=== PATIENT | female | born 1995 | race Caucasian/White ===

== ENCOUNTER 2020-04-25 10:03 | Inpatient (IN) | payer OTHER ==
[~2020-04-25] VITALS: Ht 157.4 cm; Wt 71.3 kg
[2020-04-25 11:13] VITALS: BP 150/92
[2020-04-25] MEDS ORDERED: REMERON30 M1 PO (11:35)
[2020-04-25 13:08] LABS: URINE AMPHETAMINES < 1000 (1000ng/ml); URINE BARBITURATES > 200 (200ng/ml); URINE BENZODIAZEPINES < 200 (200ng/ml); URINE CANNABINOIDS (THC) < 50 (50ng/ml); URINE COCAINE < 300 (300ng/ml); URINE METHADONE < 300 (300ng/ml); URINE OPIATES > 300 (300ng/ml)
[2020-04-25 13:09] LABS: URINE PHENCYCLIDINE < 25 (25ng/ml)
[2020-04-25 13:26] LABS: BACTERIA 3+; BILIRUBIN NEGATIVE (NEGATIVE); BLOOD NEGATIVE (NEGATIVE); CLARITY CLOUDY (CLEAR); COLOR YELLOW (YELLOW); EPITHELIAL CELLS 21-30; GLUCOSE NEGATIVE (NEGATIVE); KETONE NEGATIVE (NEGATIVE); LEUKO ESTERASE 1+ (NEGATIVE); MUCOUS 2+; NITRITE NEGATIVE (NEGATIVE); UROBILINOGEN 0.2 E.U./dl (0.2-1.0)
[2020-04-25 16:00] VITALS: BP 138/95
[2020-04-25 20:00] VITALS: BP 128/91
[2020-04-26 08:00] VITALS: BP 126/88
[2020-04-26 12:00] VITALS: BP 100/78
[2020-04-26 16:00] VITALS: BP 133/90
[2020-04-26 20:00] VITALS: BP 120/78
[2020-04-27] VITALS: BP 118/82
[2020-04-27 08:00] VITALS: BP 112/74
[2020-04-27 12:00] VITALS: BP 110/70
[2020-04-27] MEDS ORDERED: MOTRIN 600 MG E4 TAB PO (13:50)
[2020-04-27] MEDS ORDERED: METHOCARBAMOL750 M1 PO (13:50)
[2020-04-27] MEDS ORDERED: DICYCLOMINE HCL20 MG PO (13:50)
[2020-04-27] MEDS ORDERED: ZOFRAN 4 MG ED2 TAB PO (13:50)
[2020-04-27] MEDS ORDERED: THERA TABLET400 MCG PO (13:50)
[2020-04-27] MEDS ORDERED: ATARAX,VISTARIL50 MG PO (13:50)
[2020-04-27 16:00] VITALS: BP 116/74
[2020-04-27 20:00] VITALS: BP 113/73
[2020-04-28] VITALS: BP 101/83
== END 2020-04-28 08:17 | disposition home or self-care (01) | DRG 773 ==
LOC: 5E 10:03
PROVIDERS: Registered Nurse; ADMIT Internal Medicine
DX: F11.23 Opioid dependence with withdrawal (principal); F32.9 Major depressive disorder, single episode, unspecified; F17.210 Nicotine dependence, cigarettes, uncomplicated; R03.0 Elevated blood-pressure reading, without diagnosis of hypertension; F10.20 Alcohol dependence, uncomplicated; Y90.9 Presence of alcohol in blood, level not specified; Z79.899 Other long term (current) drug therapy; Z71.6 Tobacco abuse counseling